=== PATIENT | female | born 1955 | race Caucasian/White ===

== ENCOUNTER 2021-07-02 14:59 | Inpatient (IN) | payer OTHER, MEDICARE ==
[~2021-07-02] VITALS: Ht 162.6 cm; Wt 72.6 kg
[~2021-07-02 14:59] MED LIST: BENZONATATE100 MG PO; PREDNISONE 20 M20 MG PO; ZITHROMAX250 MG PO
[2021-07-02 16:37] LABS: HEMOGLOBIN 11.4 gm/dl (12.3-15.3); RED BLOOD COUNT 3.75 M/UL (4.00-5.10)
[2021-07-02 16:39] LABS: WHITE BLOOD COUNT 22.8 K/UL (4.5-11.0)
[2021-07-02 16:59] LABS: BUN/CREATININE RATIO 17 (0-10)
[2021-07-02] MEDS ORDERED: CELEXA20 MG PO (23:42)
[2021-07-02] MEDS ORDERED: MULTI-VITAMIN1 EACH PO (23:44)
[2021-07-02] MEDS ORDERED: IBU400 MG PO (23:45)
[2021-07-02] MEDS ORDERED: MELATONIN10 M2 PO (23:46)
[2021-07-02] MEDS ORDERED: PRILOSEC OTC20 MG PO (23:46)
[2021-07-02] MEDS ORDERED: XANAX0.5 MG PO (23:47)
[2021-07-03 03:48] LABS: HEMOGLOBIN 10.8 gm/dl (12.3-15.3); RED BLOOD COUNT 3.59 M/UL (4.00-5.10); WHITE BLOOD COUNT 18.7 K/UL (4.5-11.0)
[2021-07-04 03:16] LABS: HEMOGLOBIN 10.9 gm/dl (12.3-15.3); RED BLOOD COUNT 3.64 M/UL (4.00-5.10); WHITE BLOOD COUNT 21.1 K/UL (4.5-11.0)
[2021-07-05 07:02] LABS: HEMOGLOBIN 11.4 gm/dl (12.3-15.3); RED BLOOD COUNT 3.8 M/UL (4.00-5.10); WHITE BLOOD COUNT 19.4 K/UL (4.5-11.0)
[2021-07-05 07:49] LABS: BUN/CREATININE RATIO 22 (0-10)
[2021-07-06 09:39] LABS: HEMOGLOBIN 11.7 gm/dl (12.3-15.3); RED BLOOD COUNT 3.94 M/UL (4.00-5.10); WHITE BLOOD COUNT 21.2 K/UL (4.5-11.0)
[2021-07-07 06:57] LABS: HEMOGLOBIN 11.5 gm/dl (12.3-15.3); RED BLOOD COUNT 3.83 M/UL (4.00-5.10); WHITE BLOOD COUNT 21.3 K/UL (4.5-11.0)
[2021-07-07 07:14] LABS: BUN/CREATININE RATIO 28 (0-10)
--- NOTE | 2021-07-07 10:47 | NUR ---
WALKED PT, PT DROPPED TO 84% WILL NEED HOME O2
[2021-07-07] MEDS ORDERED: LEVOFLOXACIN750 MG PO (15:09)
[2021-07-07] MEDS ORDERED: HUMIBID LA TAB600 MG PO (15:09)
[2021-07-07] MEDS ORDERED: MEDROL DOSEPAK 24 MG PO (15:09)
[2021-07-07] MEDS ORDERED: COMBIVENT RESPIM4 GM INH (15:09)
[2021-07-07] MEDS ORDERED: SPIRIVA HANDIH18 MCG INH ×2 (15:09→15:14)
== END 2021-07-07 15:46 | disposition home or self-care (01) | DRG 177 ==
LOC: ER1 14:59 → CDU 21:36 → MED SURG 4 21:36
PROVIDERS: Internal Medicine; Physician Assistant; Physician Assistant Medical; ADMIT Internal Medicine
PROC: 3E0333Z Introduction of Anti-inflammatory into Peripheral Vein, Percutaneous Approach (ICD-10-PCS; principal; 2021-07-02)
DX: J15.8 Pneumonia due to other specified bacteria (principal); J96.21 Acute and chronic respiratory failure with hypoxia; J44.0 Chronic obstructive pulmonary disease with (acute) lower respiratory infection; J44.1 Chronic obstructive pulmonary disease with (acute) exacerbation; B37.0 Candidal stomatitis; Z20.822 Contact with and (suspected) exposure to COVID-19; D72.828 Other elevated white blood cell count; T38.0X5A Adverse effect of glucocorticoids and synthetic analogues, initial encounter; E78.00 Pure hypercholesterolemia, unspecified; F41.9 Anxiety disorder, unspecified; F32.A Depression, unspecified; K21.9 Gastro-esophageal reflux disease without esophagitis; G47.00 Insomnia, unspecified; E78.5 Hyperlipidemia, unspecified; Z88.0 Allergy status to penicillin; Z83.6 Family history of other diseases of the respiratory system; Z87.891 Personal history of nicotine dependence
CPT/HCPCS: 36415; 71045; 71046; 80048; 80053; 82550; 82553; 83036; 83605; 83735; 83874; 83880; 84484; 85025; 87040; 87070; 87077; 87186; 87205; 93005; 94640; 94664; 94760; 97161; 99285; J0456; J0696; J1100; J1650; J2920; J7030; U0002

== ENCOUNTER → 2021-07-30 | Outpatient (CLI) | payer OTHER, MEDICARE ==
[~2021-07-30] MED LIST changes: +CELEXA20 MG PO; +COMBIVENT RESPIM4 GM INH; +HUMIBID LA TAB600 MG PO; +IBU400 MG PO; +LEVOFLOXACIN750 MG PO; +MEDROL DOSEPAK 24 MG PO; +MELATONIN10 M2 PO; +MULTI-VITAMIN1 EACH PO; +PRILOSEC OTC20 MG PO; +SPIRIVA HANDIH18 MCG INH; +XANAX0.5 MG PO
== END ==
LOC: KOH-I 14:32
DX: J16.8 Pneumonia due to other specified infectious organisms (principal); J98.11 Atelectasis
CPT/HCPCS: 71046

== ENCOUNTER 2021-10-28 12:05 | Emergency (ER) | payer OTHER ==
[2021-10-28 14:10] LABS: HEMOGLOBIN 12.6 gm/dl (12.3-15.3); RED BLOOD COUNT 4.37 M/UL (4.00-5.10); WHITE BLOOD COUNT 11.6 K/UL (4.5-11.0)
[2021-10-28] MEDS ORDERED: PREDNISONE 20 M20 MG PO (14:58)
[2021-10-28] MEDS ORDERED: BENZONATATE200 MG PO (14:58)
== END 2021-10-28 15:25 | disposition home or self-care (01) ==
LOC: ER1 12:05
PROVIDERS: Emergency Medicine
DX: J44.1 Chronic obstructive pulmonary disease with (acute) exacerbation (principal); E78.5 Hyperlipidemia, unspecified; Z88.0 Allergy status to penicillin; Z88.1 Allergy status to other antibiotic agents
CPT/HCPCS: 71046; 80048; 81001; 82550; 82553; 84484; 85025; 93005; 94664; 94760; 96374; 99285; J2930

== ENCOUNTER 2021-10-29 11:57 | Emergency (ER) | payer OTHER ==
[~2021-10-29 11:57] MED LIST changes: +BENZONATATE200 MG PO
[2021-10-29 13:40] LABS: HEMOGLOBIN 11.9 gm/dl (12.3-15.3); RED BLOOD COUNT 4.11 M/UL (4.00-5.10)
[2021-10-29 13:41] LABS: WHITE BLOOD COUNT 17.4 K/UL (4.5-11.0)
== END 2021-10-29 18:32 | disposition home or self-care (01) ==
LOC: ER1 11:57
PROVIDERS: Physician Assistant Medical
DX: J44.9 Chronic obstructive pulmonary disease, unspecified (principal); Z20.822 Contact with and (suspected) exposure to COVID-19; E78.5 Hyperlipidemia, unspecified; Z88.0 Allergy status to penicillin; Z87.891 Personal history of nicotine dependence
CPT/HCPCS: 0240U; 71046; 80053; 85025; 93005; 94664; 96374; 99284; J2930; Q9967